=== PATIENT | male | born 1990 | race African-American/Black ===

== ENCOUNTER 2016-11-08 23:35 | Emergency (ER) | payer BC ==
[2016-11-08 23:43] VITALS: BP 134/68
== END 2016-11-09 01:26 | disposition left against medical advice (07) ==
LOC: ED 23:35
DX: R10.30 Lower abdominal pain, unspecified (principal); Z53.21 Procedure and treatment not carried out due to patient leaving prior to being seen by health care provider

== ENCOUNTER 2016-11-12 22:30 | Emergency (ER) | payer BC ==
[2016-11-12] MEDS ORDERED: Ibuprofen TAB* 600 MG PO ONE (23:10)
[2016-11-12 23:52] LABS: Urine Bilirubin Negative (Negative); Urine Glucose Negative (Negative); Urine Nitrite Negative (Negative)
--- NOTE | 2016-11-13 00:57 | ED ---
Stella Brown SooYoung, scribed for Abdifatah Everett on 11/12/16 at 2305 . GI/ HPI - HPI Summary HPI Summary: A 26 y/o M presents to ED with c/o bilat scrotal pain onset 2-3 days. Pt notes he was scheduled for an U/S three days ago for this but he missed the appt. Denies urinary discharge, abd pain, fever. Pt denies smoking, EtOH, drug use. Pt was seen in ED a few months ago for same sx. - History of Current Complaint Chief Complaint: EDUrogenitalProblems Time Seen by Provider: 11/12/16 23:04 Stated Complaint: GROIN PAIN Hx Obtained From: Patient Onset/Duration: Still Present Current Severity: Moderate Pain Intensity: 5 - out of 10 Additional Locations for Males: Scrotum Associated Signs and Symptoms: Negative: Discharge, Fever, Abdominal Pain - Allergy/Home Medications Allergies/Adverse Reactions: Allergies Allergy/AdvReac Type Severity Reaction Status Date / Time Penicillins Allergy Unknown Verified 07/16/16 17:24 Reaction Details PMH/Surg Hx/FS Hx/Imm Hx Previously Healthy: Yes Endocrine/Hematology History: Denies: Hx Anticoagulant Therapy, Hx Diabetes, Hx Thyroid Disease Cardiovascular History: Denies: Hx Hypertension, Hx Pacemaker/ICD Respiratory History: Denies: Hx Asthma, Hx Chronic Obstructive Pulmonary Disease (COPD) History: Denies: Hx Renal Disease Neurological History: Denies: Hx Dementia, Hx Seizures Psychiatric History: Denies: Hx Substance Abuse Infectious Disease History: No Infectious Disease History: Denies: Hx Clostridium Difficile, Hx Hepatitis, Hx Human Immunodeficiency Virus (HIV), Hx of Known/Suspected MRSA, Hx Shingles, Hx Tuberculosis, Hx Known/ Suspected VRE, Hx Known/Suspected VRSA, History Other Infectious Disease, Traveled Outside the [place] in Last 30 Days - Family History Known Family History: Positive: Hypertension - Social History Occupation: Employed Part-time Lives: With Family Alcohol Use: None Hx Substance Use: No Substance Use Type: Reports: None Hx Tobacco Use: No Smoking Status (MU): Never Smoked Tobacco Review of Systems Negative: Fever Negative: Abdominal Pain Positive: other - bilat scrotal pain. Negative: discharge All Other Systems Reviewed And Are Negative: Yes Physical Exam Triage Information Reviewed: Yes Vital Signs On Initial Exam: Initial Vitals Temp Pulse Resp BP Pulse Ox 98.4 F 80 18 138/61 100 11/12/16 22:40 11/12/16 22:40 11/12/16 22:40 11/12/16 22:40 11/12/16 22:40 Vital Signs Reviewed: Yes Appearance: Positive: Well-Appearing, No Pain Distress Skin: Positive: Warm, Skin Color Reflects Adequate Perfusion, Dry Head/Face: Positive: Normal Head/Face Inspection Eyes: Positive: EOMI, JORDAN ENT: Positive: Normal ENT inspection Neck: Positive: Supple, Nontender Respiratory/Lung Sounds: Positive: Clear to Auscultation, Breath Sounds Present Cardiovascular: Positive: RRR, Pulses are Symmetrical in both Upper and Lower Extremities Abdomen Description: Positive: Nontender, Soft Bowel Sounds: Positive: Present Male Genital Exam: Positive: scrotum tenderness (R), scrotum tenderness (L), other - mild scrotal edema Musculoskeletal: Positive: Normal, Strength/ROM Intact - 4XFROM Neurological: Positive: Normal, Sensory/Motor Intact, Alert, Oriented to Person Place, Time Diagnostics - Vital Signs Vital Signs Temp Pulse Resp BP Pulse Ox 11/12/16 22:40 98.4 F 80 18 138/61 100 - Laboratory Lab Statement: Any lab studies that have been ordered have been reviewed, and results considered in the medical decision making process. - Ultrasound No standard instances Ultrasound Interpretation: Positive (See Comments) - IMPRESSION: Small bilateral hydroceles. Minimal L testicular microlithiasis. Ultrasound Interpretation Completed By: Radiologist EVIN Course/Dx - Course Course Of Treatment: MDM: Pt is a 26 y/o M presents to ED with ongoing bilat scrotal pain. Testicular U/S was negative. Pt will be d/c with IBP and told to f/u with urology. Urine test for STDs is pending and pt will be called if positive. Pt voiced understanding. - Diagnoses Provider Diagnoses: Scrotal pain Discharge - Discharge Plan Condition: Stable Disposition: HOME Patient Education Materials: Ibuprofen (By mouth), Testicle Pain (ED) Referrals: No Primary Care Phys,NOPCP [Primary Care Provider] - Ke Garrison MD [Medical Doctor] - 1 Week () Additional Instructions: Follow up with Dr. Garrison, urology, in one week. The results for your urine STD test is still pending. You will be called only if the results are positive. Return to ED for worsening or new symptoms. The documentation as recorded by the Stella matta SooYoung accurately reflects the service I personally performed and the decisions made by me, Abdifatah Everett.
[2016-11-13 01:06] VITALS: BP 128/64
--- NOTE | 2016-11-13 07:54 | RAD ---
INDICATION: Bilateral testicular pain. COMPARISON: Comparison is made with a prior testicular ultrasound from August 25, 2016. TECHNIQUE: Multiple real-time images of the testicles were obtained including color Doppler images and Doppler tracings. FINDINGS: The testicles are normal in size, shape and echogenicity. The right testicle measured 3.8 x 2.0 x 2.8 cm and the left testicle measured 4.3 x 2.1 x 2.8 cm. There is a small calcification in the inferior pole of the left testicle which is unchanged. No other focal abnormalities are seen. There is symmetric vascular flow within both testicles. The epididymides appear to be within normal limits. Note is made of a appendix testes on the right side. There are small bilateral hydroceles. IMPRESSION: 1. NO EVIDENCE FOR TESTICULAR TORSION OR EPIDIDYMITIS. 2. SMALL BILATERAL HYDROCELES. 3. SMALL AREA OF CALCIFICATION IN THE INFERIOR POLE OF THE LEFT TESTICLE NOTED IN THE PRIOR STUDY RECOMMEND A FOLLOW-UP TESTICULAR ULTRASOUND IN 6 MONTHS TIME.
== END 2016-11-13 01:04 | disposition home or self-care (01) ==
LOC: ED 22:30
DX: N50.82 Scrotal pain (principal); N43.3 Hydrocele, unspecified
CPT/HCPCS: 76870; 81003; 87491; 87591; 99282; A9270-GY

== ENCOUNTER 2017-10-26 22:39 | Emergency (ER) | payer BC ==
[2017-10-27] MEDS ORDERED: Ondansetron ODT TAB* 4 MG PO ONE (00:22)
[2017-10-27] MEDS ORDERED: Ketorolac INJ* 60 MG/2 ML VIAL IM ONE (00:22)
[2017-10-27] MEDS ORDERED: O ndansetron ODT 4MG 2TAB PRPK 4 MG PAK PO ONE (01:11)
--- NOTE | 2017-10-27 01:11 | ED ---
Influenza-Like Illness - HPI Summary HPI Summary: 27M presents with fever since today. He admits to headache and generalized body aches. He denies any cough or sore throat. He denies any sinus congestion. He denies any chest pain or SOB. He denies any fever stiffness. He admits to nausea but denies any vomiting. He admits to diarrhea. He admits to decrease in appetite. He admits to generalized abdominal pain. He denies any one else being sick. He has not take anything for his fever. - History of Current Complaint Chief Complaint: EDFever Time Seen by Provider: 10/26/17 23:54 - Allergy/Home Medications Allergies/Adverse Reactions: Allergies Allergy/AdvReac Type Severity Reaction Status Date / Time Penicillins Allergy Unknown Verified 07/16/16 17:24 Reaction Details PMH/Surg Hx/FS Hx/Imm Hx Endocrine/Hematology History: Denies: Hx Anticoagulant Therapy, Hx Diabetes, Hx Thyroid Disease Cardiovascular History: Denies: Hx Hypertension, Hx Pacemaker/ICD Respiratory History: Denies: Hx Asthma, Hx Chronic Obstructive Pulmonary Disease (COPD) History: Denies: Hx Renal Disease Neurological History: Denies: Hx Dementia, Hx Seizures Psychiatric History: Denies: Hx Substance Abuse Infectious Disease History: No Infectious Disease History: Denies: Hx Clostridium Difficile, Hx Hepatitis, Hx Human Immunodeficiency Virus (HIV), Hx of Known/Suspected MRSA, Hx Shingles, Hx Tuberculosis, Hx Known/ Suspected VRE, Hx Known/Suspected VRSA, History Other Infectious Disease, Traveled Outside the [place] in Last 30 Days - Family History Known Family History: Positive: Hypertension - Social History Alcohol Use: None Hx Substance Use: No Substance Use Type: Reports: None Hx Tobacco Use: No Smoking Status (MU): Never Smoked Tobacco Review of Systems Positive: Fever Negative: Chest Pain Negative: Shortness Of Breath, Cough Positive: Abdominal Pain, Diarrhea, Nausea. Negative: Vomiting All Other Systems Reviewed And Are Negative: Yes Physical Exam Triage Information Reviewed: Yes Vital Signs On Initial Exam: Initial Vitals Temp Pulse Resp BP Pulse Ox 99.9 F 106 18 109/61 99 10/26/17 22:47 10/26/17 22:47 10/26/17 22:47 10/26/17 22:47 10/26/17 22:47 Vital Signs Reviewed: Yes Appearance: Positive: Well-Appearing Skin: Positive: Warm, Dry Head/Face: Positive: Normal Head/Face Inspection Eyes: Positive: Normal, EOMI, JORDAN, Conjunctiva Clear ENT: Positive: Normal ENT inspection, Pharynx normal, TMs normal Respiratory/Lung Sounds: Positive: Clear to Auscultation, Breath Sounds Present Cardiovascular: Positive: Normal, RRR Abdomen Description: Positive: Nontender, Soft Bowel Sounds: Positive: Present Musculoskeletal: Positive: Normal Neurological: Positive: Normal Psychiatric: Positive: Normal - Omer Coma Scale Coma Scale Total: 15 Diagnostics - Vital Signs Vital Signs Temp Pulse Resp BP Pulse Ox 10/27/17 00:16 100.4 F 10/26/17 22:47 99.9 F 106 18 109/61 99 - Laboratory Lab Results: Lab Results 10/27/17 10/27/17 Range/Units 00:21 00:22 Influenza A (Rapid) Negative (Negative) Influenza B (Rapid) Negative (Negative) Group A Strep Rapid Negative (Negative) Lab Statement: Any lab studies that have been ordered have been reviewed, and results considered in the medical decision making process. Flu Symptom Course/Dx - Course Course Of Treatment: 27M presents with fever since today. He admits to headache and generalized body aches. He denies any cough or sore throat. He denies any sinus congestion. He denies any chest pain or SOB. He denies any fever stiffness. He admits to nausea but denies any vomiting. He admits to diarrhea. He admits to decrease in appetite. He admits to generalized abdominal pain. He denies any one else being sick. He has not take anything for his fever. on exam abdomen soft nontender. lungs CTA. flu and strept neg. likely viral gastroenteritis causing symptoms. patient understand and agrees with plan. - Diagnoses Differential Diagnosis/HQI/PQRI: Positive: Influenza, Upper Respiratory Infection, Other - gastroenteritits Provider Diagnoses: Fever Discharge - Discharge Plan Condition: Good Disposition: HOME Prescriptions: Ondansetron ODT TAB* [Zofran 4 MG Odt TAB*] 4 mg PO Q6H PRN #16 tab.odt PRN Reason: Nausea Patient Education Materials: Fever in Adults (ED) Forms: *Work Release Referrals: [facility] [Outside] Additional Instructions: Take zofran every 6 hours as needed for nausea Can Tylenol or ibuprofen every 6 hours for pain and fever Establish care with primary care physician Return to ED if develop any new or worsening symptoms
[2017-10-27] MEDS ORDERED: Ondansetron ODT TAB* 4 MG ONE (01:18)
[2017-10-27 01:23] VITALS: BP 114/61
== END 2017-10-27 01:22 | disposition home or self-care (01) ==
LOC: ED 22:39
DX: R50.9 Fever, unspecified (principal); R51 Headache
CPT/HCPCS: 87502; 87651; 96372; 99282; A9270-GY; J1885

== ENCOUNTER 2017-12-24 11:46 | Emergency (ER) | payer BC ==
[2017-12-24 12:03] VITALS: BP 119/59
--- NOTE | 2017-12-24 12:22 | UC ---
Keegan Brown Jennifer, scribed for Estiven Pérez MD on 12/24/17 at 1209 . Cardiac HPI - HPI Summary HPI Summary: The pt is a 27 y/o male who presents with chest pain that began last night. Pt reports the pain is located mid sternal and radiates to the back of his neck and shoulders. It is described as a pounding and is rated a 7/10. The pain is aggravated with deep breaths. Pt additionally complains of his head spinning, vision blurriness, nausea, shortness of breath, and swollen feet. He denies fevers, chills, sweats, cough, chest congestion, and any recent illness. The pt reports that he has had recent stress at work that he believes may have triggered this. - History of Current Complaint Stated Complaint: DIZZY,CHEST PAIN, HEART PALP Hx Obtained From: Patient Onset/Duration: Sudden Onset, Lasting Days - Began last night, Still Present Timing: Constant Initial Severity: Moderate Current Severity: Moderate Pain Intensity: 7 Chest Pain Location: Mid Sternal Character: Pounding Aggravating Factor(s): Deep Breaths, Other - Palpation Alleviating Factor(s): Nothing Associated Signs & Symptoms: Positive: Chest Pain, Vision Changes - Blurriness, Recent Stress - Work, Headaches - Head "spinning", SOB, Swelling - Swelling of feet, Nausea/Vomiting - Nausea. Negative: Fever, Diaphoresis, Cough - Allergy/Home Medications Allergies/Adverse Reactions: Allergies Allergy/AdvReac Type Severity Reaction Status Date / Time Penicillins Allergy anaph Verified 12/24/17 11:59 PMH/Surg Hx/FS Hx/Imm Hx Previously Healthy: Yes - NEG: HTN, DM Other History Of: Negative For: Anticoagulant Therapy - Surgical History Surgical History: None - Family History Known Family History: Positive: Hypertension - Social History Alcohol Use: None Substance Use Type: None Smoking Status (MU): Never Smoked Tobacco Review of Systems Constitutional: Negative - Fever, chills, sweats Eyes: Blurred Vision Respiratory: Negative - Cough, chest congestion, Shortness Of Breath Cardiovascular: Chest Pain Gastrointestinal: Nausea Musculoskeletal: Other: - Swelling of feet Neurological: Other - Head is "spinning" Is Patient Immunocompromised?: No All Other Systems Reviewed And Are Negative: Yes Physical Exam - Summary Physical Exam Summary: General: well-appearing, no pain distress Skin: warm, color reflects adequate perfusion, dry Head: normal Eyes: EOMI, JORDAN ENT: normal Neck: supple, nontender Respiratory: CTA, breath sounds present Cardiovascular: Reported tenderness to palpation on anterior chest. RRR Abdomen: soft, nontender Bowel: present Musculoskeletal: normal, strength/ROM intact Neurological: normal, sensory/motor intact, A&O x3 Psychological: affect/mood appropriate Triage Information Reviewed: Yes Vital Signs: Initial Vital Signs Temp 98.3 F 12/24/17 12:00 Pulse 67 12/24/17 12:00 Resp 18 12/24/17 12:00 BP 119/59 12/24/17 12:00 Pulse Ox 99 12/24/17 12:00 Vital Signs Reviewed: Yes - Assessment/Plan Course Of Treatment: Medications reviewed. Allergies noted. DISCUSSED NEED FOR EVALUATION FOR CHEST PAIN IN EMERGENCY DEPARTMENT WHERE LABS AND OTHER TEST CAN BE RESULTED RIGHT AWAY. DISCUSSED GOING BY AMBULANCE TO THE EMERGENCY DEPARTMENT; PATIENT DECLINED, STATED HE WOULD BY GO BY POV. I INFORMED THE ED THAT PATIENT WILL BE GOING THERE. - Clinical Impression Provider Diagnoses: CHEST PAIN Discharge - Discharge Plan Condition: Stable Disposition: HOME Patient Education Materials: Chest Pain (ED) Referrals: No Primary Care Phys,NOPCP [Primary Care Provider] - Additional Instructions: GO DIRECTLY TO THE EMERGENCY DEPARTMENT FOR FURTHER EVALUATION OF YOUR CHEST PAIN. The documentation as recorded by the Keegan matta Jennifer accurately reflects the service I personally performed and the decisions made by me, Estiven Pérez MD.
== END 2017-12-24 12:16 | disposition home or self-care (01) ==
LOC: UCEAST 11:46
DX: R07.89 Other chest pain (principal); Z88.0 Allergy status to penicillin
CPT/HCPCS: 99211; G0463

== ENCOUNTER 2017-12-24 12:41 | Emergency (ER) | payer BC ==
[2017-12-24 13:38] LABS: ABS Basophils 0 10^3/ul (0-0.2); ABS Eosinophils 0.1 10^3/ul (0-0.6); ABS Lymphocytes 1.4 10^3/ul (1.0-4.8); ABS Monocytes 0.4 10^3/ul (0-0.8); ABS Nucleated RBC 0 10^3/ul; Eosinophil % 2.8 % (0-6); Hematocrit 42 % (42-52); Hemoglobin 14.3 g/dl (14.0-18.0); Lymphocyte % 27.9 % (25-47); Mean Corpuscular HGB Conc 34 g/dl (31-36); Mean Corpuscular Hemoglobin 30 pg (27-31); Mean Corpuscular Volume 87 fL (80-94); Mean Platelet Volume 8 um3 (7.4-10.4); Nucleated Red Blood Cells % 0.2; Platelet Count 234 10^3/ul (150-450); Red Blood Count 4.79 10^6/ul (4.0-5.4); Red Cell Distribution Width 14 % (10.5-15); White Blood Count 5.1 10^3/ul (3.5-10.8)
[2017-12-24 13:53] LABS: EGFR Non-African American 97.8 (>60)
[2017-12-24 14:27] VITALS: BP 132/74
--- NOTE | 2017-12-24 14:34 | RAD ---
Indication: Chest pain. 2 views of the chest including dual energy PA views demonstrates no mediastinal shift. Heart is of normal size and configuration. Lung terrazas are clear. When compared to previous exam of 5:15 no significant change is noted. IMPRESSION: No active cardiopulmonary disease is noted.
== END 2017-12-24 14:26 | disposition left against medical advice (07) ==
LOC: ED 12:41
DX: R07.9 Chest pain, unspecified (principal); Z53.21 Procedure and treatment not carried out due to patient leaving prior to being seen by health care provider
CPT/HCPCS: 36415; 71046; 80053; 84484; 85025; 85379; 93005

== ENCOUNTER 2017-12-24 15:44 | Emergency (ER) | payer BC ==
[2017-12-24 19:13] VITALS: BP 112/66
--- NOTE | 2017-12-29 19:40 | ED ---
Aaron Brown Julia, scribed for Poli Cronin MD on 12/24/17 at 1955 . HPI Chest Pain - HPI Summary HPI Summary: This patient is a 27 year old M presenting to [facility] with a chief complaint of chest pain, SOB, and numbness in the hands. Patient reports he gets these symptoms while at work, which has been increasingly stressful recently. He is not currently having symptoms. 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 - History of Current Complaint Chief Complaint: EDChestPainROMI Time Seen by Provider: 12/24/17 18:56 Hx Obtained From: Patient Onset/Duration: Started Weeks Ago, Resolved Timing: Intermittent Pain Intensity: 0 Pain Scale Used: 0-10 Numeric Chest Pain Location: Mid Sternal Associated Signs and Symptoms: Positive: Chest Pain, Shortness of Breath, Other : - tingling in hands - Allergy/Home Medications Allergies/Adverse Reactions: Allergies Allergy/AdvReac Type Severity Reaction Status Date / Time Penicillins Allergy anaph Verified 12/24/17 11:59 PMH/Surg Hx/FS Hx/Imm Hx Endocrine/Hematology History: Denies: Hx Anticoagulant Therapy, Hx Diabetes, Hx Thyroid Disease Cardiovascular History: Denies: Hx Hypertension, Hx Pacemaker/ICD Respiratory History: Denies: Hx Asthma, Hx Chronic Obstructive Pulmonary Disease (COPD) History: Denies: Hx Renal Disease Neurological History: Denies: Hx Dementia, Hx Seizures Psychiatric History: Denies: Hx Substance Abuse Infectious Disease History: No Infectious Disease History: Denies: Hx Clostridium Difficile, Hx Hepatitis, Hx Human Immunodeficiency Virus (HIV), Hx of Known/Suspected MRSA, Hx Shingles, Hx Tuberculosis, Hx Known/ Suspected VRE, Hx Known/Suspected VRSA, History Other Infectious Disease, Traveled Outside the [place] in Last 30 Days - Family History Known Family History: Positive: Hypertension - Social History Alcohol Use: None Hx Substance Use: No Substance Use Type: Reports: None Hx Tobacco Use: No Smoking Status (MU): Never Smoked Tobacco Review of Systems Positive: Chest Pain Positive: Shortness Of Breath Neurological: Other - tingling in hands All Other Systems Reviewed And Are Negative: Yes Physical Exam - Summary Physical Exam Summary: Appearance: Well-appearing, Well-nourished Skin: Warm, Dry, No rash Eyes: Normal, PERRL, EOMI, sclera anicteric ENT: Normal Neck: Supple, nontender Respiratory: Clear to auscultation Cardiovascular: S1, S2, no murmur, no rub, no gallop Abdomen: Soft, nontender, no organomegaly Bowel sounds: Present Musculoskeletal: Normal, Strength/ROM Intact, no edema, pulses symmetrical Neurological: Normal, A&Ox3, cranial nerves II-XII WNL, follows commands, gait not tested, sensation intact to pin and light touch Psychiatric: affect normal, behavior appropriate, dressed appropriately, judgment intact Triage Information Reviewed: Yes Vital Signs On Initial Exam: Initial Vitals Temp Pulse Resp BP Pulse Ox 97.7 F 69 18 127/66 99 12/24/17 15:46 12/24/17 15:46 12/24/17 15:46 12/24/17 15:46 12/24/17 15:46 Vital Signs Reviewed: Yes Diagnostics - Vital Signs Vital Signs Temp Pulse Resp BP Pulse Ox 12/24/17 19:12 98.7 F 66 15 112/66 99 12/24/17 17:35 97.7 F 66 18 124/68 99 12/24/17 15:46 97.7 F 69 18 127/66 99 - Laboratory Lab Statement: Any lab studies that have been ordered have been reviewed, and results considered in the medical decision making process. Chest Pain Course/Dx - Course Course Of Treatment: Patient presents with chest pain, SOB, and tingling in the hands that is currently resolved. He reports recent stress at work. His previous EKG and CXR from earlier today was unremarkable. - Diagnoses Provider Diagnoses: Panic attack, Anxiety disorder Discharge - Discharge Plan Condition: Good Disposition: HOME Prescriptions: Mirtazapine 15 mg PO BEDTIME #30 tab.rapdis Patient Education Materials: Anxiety (ED), Panic Attack (ED) Forms: *Work Release Referrals: No Primary Care Phys,NOPCP [Primary Care Provider] - The documentation as recorded by the Aaron matta Julia accurately reflects the service I personally performed and the decisions made by me, Poli Cronin MD.
--- NOTE | 2017-12-29 19:40 | ED ---
Aaron Brown Julia, scribed for Poli Cronin MD on 12/24/17 at 1856 . HPI Chest Pain - History of Current Complaint Chief Complaint: EDChestPainROMI Pain Intensity: 0 - Allergy/Home Medications Allergies/Adverse Reactions: Allergies Allergy/AdvReac Type Severity Reaction Status Date / Time Penicillins Allergy anaph Verified 12/24/17 11:59 PMH/Surg Hx/FS Hx/Imm Hx Endocrine/Hematology History: Denies: Hx Anticoagulant Therapy, Hx Diabetes, Hx Thyroid Disease Cardiovascular History: Denies: Hx Hypertension, Hx Pacemaker/ICD Respiratory History: Denies: Hx Asthma, Hx Chronic Obstructive Pulmonary Disease (COPD) History: Denies: Hx Renal Disease Neurological History: Denies: Hx Dementia, Hx Seizures Psychiatric History: Denies: Hx Substance Abuse Infectious Disease History: No Infectious Disease History: Denies: Hx Clostridium Difficile, Hx Hepatitis, Hx Human Immunodeficiency Virus (HIV), Hx of Known/Suspected MRSA, Hx Shingles, Hx Tuberculosis, Hx Known/ Suspected VRE, Hx Known/Suspected VRSA, History Other Infectious Disease, Traveled Outside the [place] in Last 30 Days - Family History Known Family History: Positive: Hypertension - Social History Alcohol Use: None Hx Substance Use: No Substance Use Type: Reports: None Hx Tobacco Use: No Smoking Status (MU): Never Smoked Tobacco Review of Systems Genitourinary: Negative Positive: no symptoms reported Musculoskeletal: Negative Skin: Negative Neurological: Other Positive: Paresthesia Psychological: Other Positive: Anxious, Depressed All Other Systems Reviewed And Are Negative: Yes Physical Exam Vital Signs On Initial Exam: Initial Vitals Temp Pulse Resp BP Pulse Ox 97.7 F 69 18 127/66 99 12/24/17 15:46 12/24/17 15:46 12/24/17 15:46 12/24/17 15:46 12/24/17 15:46 Diagnostics - Vital Signs Vital Signs Temp Pulse Resp BP Pulse Ox 12/24/17 17:35 97.7 F 66 18 124/68 99 12/24/17 15:46 97.7 F 69 18 127/66 99 - Laboratory Lab Statement: Any lab studies that have been ordered have been reviewed, and results considered in the medical decision making process. Chest Pain Course/Dx - Diagnoses Provider Diagnoses: Panic attack, Anxiety disorder Discharge - Discharge Plan Condition: Good Disposition: HOME Prescriptions: Mirtazapine 15 mg PO BEDTIME #30 tab.rapdis Patient Education Materials: Anxiety (ED), Panic Attack (ED) Forms: *Work Release Referrals: No Primary Care Phys,NOPCP [Primary Care Provider] - The documentation as recorded by the Aaron matta Julia accurately reflects the service I personally performed and the decisions made by me, Poli Cronin MD.
== END 2017-12-24 19:12 | disposition home or self-care (01) ==
LOC: ED 15:44
DX: F41.0 Panic disorder [episodic paroxysmal anxiety] (principal); F41.9 Anxiety disorder, unspecified; R07.9 Chest pain, unspecified; Z88.0 Allergy status to penicillin
CPT/HCPCS: 99281

== ENCOUNTER 2018-01-27 22:27 | Emergency (ER) | payer SELFPAY ==
[2018-01-28] MEDS ORDERED: Cyclobenzaprine TAB* 10 MG PO ONE (00:59)
[2018-01-28] MEDS ORDERED: Ketorolac INJ* 60 MG/2 ML VIAL IM ONE (00:59)
[2018-01-28 02:08] VITALS: BP 120/75
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
== END 2018-01-28 02:09 | disposition home or self-care (01) ==
LOC: ED 22:27
DX: M54.5 Low back pain (principal)
CPT/HCPCS: 72110; 96372; 99282; A9270-GY; J1885

== ENCOUNTER 2018-02-28 20:38 | Emergency (ER) | payer SELFPAY ==
[2018-02-28 20:49] VITALS: BP 135/69
--- NOTE | 2018-02-28 21:24 | UC ---
FLU HPI - HPI Summary HPI Summary: c/o fever, malaise, nasal discharge with occasional nasal bleeding when blowing his nose. He denies taking aspirin or blood thinners. States he has a baby and wants to be tested for influenza. Denies n/v/d. - History of Current Complaint Chief Complaint: UCRespiratory Stated Complaint: NOSE BLEEDS, CONGESTION Time Seen by Provider: 02/28/18 20:49 Hx Obtained From: Patient Onset/Duration: Gradual Onset, Lasting Days Severity Currently: Mild Severity Initially: Moderate Pain Intensity: 0 Associated Signs & Symptoms: Positive: Fever, T Max - 101, Myalgia, Cough, Nasal Congestion - Risk Factors Influenza Risk Factors: Negative - Allergy/Home Medications Allergies/Adverse Reactions: Allergies Allergy/AdvReac Type Severity Reaction Status Date / Time Penicillins Allergy Anaphylatic Verified 02/28/18 20:50 Shock PMH/Surg Hx/FS Hx/Imm Hx Previously Healthy: Yes Other History Of: Negative For: Anticoagulant Therapy - Surgical History Surgical History: None - Family History Known Family History: Positive: Hypertension - Social History Alcohol Use: None Substance Use Type: None Smoking Status (MU): Never Smoked Tobacco Review of Systems Constitutional: Fever ENT: Nasal Discharge, Sinus Congestion All Other Systems Reviewed And Are Negative: Yes Physical Exam Triage Information Reviewed: Yes Appearance: Well-Appearing, No Pain Distress, Well-Nourished Vital Signs: Initial Vital Signs Temp 99.2 F 02/28/18 20:45 Pulse 70 02/28/18 20:45 Resp 16 02/28/18 20:45 BP 135/69 02/28/18 20:45 Pulse Ox 100 02/28/18 20:45 Vital Signs Reviewed: Yes Eyes: Positive: Conjunctiva Clear ENT: Positive: Hearing grossly normal, Pharynx normal, Nasal congestion, TMs normal, Uvula midline, Other - no blood found on speculoscopy of anterior nose Neck: Positive: Supple, Nontender, No Lymphadenopathy Respiratory: Positive: Chest non-tender, Lungs clear, Normal breath sounds, No respiratory distress Cardiovascular: Positive: RRR, No Murmur, Pulses Normal, Brisk Capillary Refill Flu Course/Dx - Course Course Of Treatment: viral syndrome, influenza test was negative, continue universal precautions with hand hygiene, nasal normal saline, and gentle cleansing of nose. - Differential Dx/Diagnosis Provider Diagnoses: viral URI Discharge - Sign-Out/Discharge Documenting (check all that apply): Discharge/Admit/Transfer - Discharge Plan Condition: Good Disposition: HOME Patient Education Materials: Upper Respiratory Infection (DC), Sodium Chloride (Into the nose) Referrals: No Primary Care Phys,NOPCP [Primary Care Provider] - - Billing Disposition and Condition Condition: GOOD Disposition: HOME
== END 2018-02-28 21:47 | disposition home or self-care (01) ==
LOC: UCEAST 20:38
DX: J06.9 Acute upper respiratory infection, unspecified (principal); Z88.0 Allergy status to penicillin
CPT/HCPCS: 87502; 99211; G0463

== ENCOUNTER 2018-06-23 19:53 | Emergency (ER) | payer BC ==
[2018-06-23 20:39] VITALS: BP 116/80
--- NOTE | 2018-06-23 20:54 | ED ---
Skin Complaint - HPI Summary HPI Summary: 27-year-old male presents with itchiness of neck after shaving. He states it has been going on for months. 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 He states he cannot stop shaving. He denies any history of eczema. No fevers. He states occasionally he gets pustules. no spreading Redness. Has tried differentiating soaps and shaving creams with minimal relief. - History of Current Complaint Chief Complaint: UCSkin Time Seen by Provider: 06/23/18 20:44 Stated Complaint: SKIN COMPLAINT Pain Intensity: 6 - Allergy/Home Medications Allergies/Adverse Reactions: Allergies Allergy/AdvReac Type Severity Reaction Status Date / Time Penicillins Allergy Anaphylatic Verified 06/23/18 20:39 Shock PMH/Surg Hx/FS Hx/Imm Hx Endocrine/Hematology History: Denies: Hx Anticoagulant Therapy, Hx Diabetes, Hx Thyroid Disease Cardiovascular History: Denies: Hx Hypertension, Hx Pacemaker/ICD Respiratory History: Denies: Hx Asthma, Hx Chronic Obstructive Pulmonary Disease (COPD) History: Denies: Hx Renal Disease Neurological History: Denies: Hx Dementia, Hx Seizures Psychiatric History: Denies: Hx Substance Abuse Infectious Disease History: No Infectious Disease History: Denies: Hx Clostridium Difficile, Hx Hepatitis, Hx Human Immunodeficiency Virus (HIV), Hx of Known/Suspected MRSA, Hx Shingles, Hx Tuberculosis, Hx Known/ Suspected VRE, Hx Known/Suspected VRSA, History Other Infectious Disease, Traveled Outside the [place] in Last 30 Days - Family History Known Family History: Positive: Hypertension - Social History Alcohol Use: None Hx Substance Use: No Substance Use Type: Reports: None Hx Tobacco Use: No Smoking Status (MU): Never Smoked Tobacco Review of Systems Negative: Fever Negative: Chest Pain Negative: Shortness Of Breath Positive: Rash All Other Systems Reviewed And Are Negative: Yes Physical Exam Triage Information Reviewed: Yes Vital Signs On Initial Exam: Initial Vitals Temp Pulse Resp BP Pulse Ox 97.3 F 83 12 116/80 100 06/23/18 20:36 06/23/18 20:36 06/23/18 20:36 06/23/18 20:36 06/23/18 20:36 Vital Signs Reviewed: Yes Appearance: Positive: Well-Appearing Skin: Positive: Other - papules present near hair root Head/Face: Positive: Normal Head/Face Inspection Eyes: Positive: Normal, Conjunctiva Clear ENT: Positive: Pharynx normal Respiratory/Lung Sounds: Positive: Clear to Auscultation, Breath Sounds Present Cardiovascular: Positive: Normal, RRR Musculoskeletal: Positive: Normal Neurological: Positive: Normal Psychiatric: Positive: Normal Diagnostics - Vital Signs Vital Signs Temp Pulse Resp BP Pulse Ox 06/23/18 20:36 97.3 F 83 12 116/80 100 - Laboratory Lab Statement: Any lab studies that have been ordered have been reviewed, and results considered in the medical decision making process. Course/Dx - Course Course Of Treatment: 27-year-old male presents with itchiness of neck after shaving. He states it has been going on for months. 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 He states he cannot stop shaving. He denies any history of eczema. No fevers. He states occasionally he gets pustules. no spreading Redness. Has tried differentiating soaps and shaving creams with minimal relief. on exam has papules presents on neck and lower face near hair follicles. no pustules. discussed best treatment is to stop shaving. will give steriod for sx relief. will give antibiotic if develop any pustules. gave tips to help with shaving. patient understand and agrees with plan. - Differential Diagnoses - Skin Complaint Differential Diagnoses: Eczema, Other - follicilitis, abscess - Diagnoses Provider Diagnoses: Pseudofolliculitis barbae Discharge - Sign-Out/Discharge Documenting (check all that apply): Patient Departure All imaging exams completed and their final reports reviewed: No Studies - Discharge Plan Condition: Good Disposition: HOME Prescriptions: Hydrocortisone 2.5% CREAM(NF) 1 applic TOPICAL BID #1 tube Mupirocin 2% OINT* [Bactroban 2 % Oint*] 1 applic TOPICAL BID #1 tube Forms: *Gen. Provider Communication Referrals: No Primary Care Phys,NOPCP [Primary Care Provider] - Additional Instructions: try to avoid shaving if have to shave apply shaving cream to area for 10 mins prior to shaving and shave with single blade in direction of hair growth wash lindsey daily to loosen hair apply corticosteriod to area twice a day apply antibiotic ointment if any pustules develop Return to ED if develop any new or worsening symptoms - Billing Disposition and Condition Condition: GOOD Disposition: Home
== END 2018-06-23 21:00 | disposition home or self-care (01) ==
LOC: UCEAST 19:53
DX: L73.1 Pseudofolliculitis barbae (principal); Z88.0 Allergy status to penicillin
CPT/HCPCS: 99212; G0463

== ENCOUNTER 2019-04-14 13:42 | Emergency (ER) | payer BC, OTHER ==
[2019-04-14 14:11] VITALS: BP 108/65
--- NOTE | 2019-04-14 14:30 | UC ---
Hand/Wrist HPI - HPI Summary HPI Summary: 28 yo male presents with LEFT 5th digit injury. He tells me that 2 days ago at work he accidentally slammed his left pinky into a lock box. Since that time has had pain and swelling to the PIP joint with decreased ROM. He has not iced it or taken anything OTC for his discomfort. He is right handed. - History Of Current Complaint Chief Complaint: UCUpperExtremity Stated Complaint: FINGER INJURY Time Seen by Provider: 04/14/19 14:30 Hx Obtained From: Patient Onset/Duration: Sudden Onset Severity Initially: Severe Severity Currently: Severe Pain Intensity: 8 Pain Scale Used: 0-10 Numeric - Allergies/Home Medications Allergies/Adverse Reactions: Allergies Allergy/AdvReac Type Severity Reaction Status Date / Time Penicillins Allergy Anaphylatic Verified 04/14/19 14:11 Shock Home Medications: Home Medications NK [No Home Medications Reported] 04/14/19 [History Confirmed 04/14/19] PMH/Surg Hx/FS Hx/Imm Hx - Additional Past Medical History Additional PMH: None Other History Of: Negative For: Anticoagulant Therapy - Surgical History Surgical History: None - Family History Known Family History: Positive: Hypertension - Social History Occupation: Employed Full-time Alcohol Use: None Substance Use Type: None Smoking Status (MU): Never Smoked Tobacco Review of Systems All Other Systems Reviewed And Are Negative: Yes Constitutional: Positive: Negative Skin: Positive: Negative Respiratory: Positive: Negative Cardiovascular: Positive: Negative Neurovascular: Positive: Negative Musculoskeletal: Positive: Other: - Left pinky injury Neurological: Positive: Negative Psychological: Positive: Negative Physical Exam - Summary Physical Exam Summary: GENERAL: NAD. WDWN. No pain distress. SKIN: No rashes, sores, lesions, or open wounds. CHEST: No accessory muscle use. Breathing comfortably and in no distress. CV: Pulses intact radial and ulnar. Cap refill <2seconds MSK: LEFT 5th digit: Mild edema at PIP with moderate TTP at dorsal aspect. Pain during flexion of PIP. Mild TTP at DIP and slight decreased flexion here. FROM at MCP without TTP. NEURO: Alert. Sensations intact hand and all fingers. PSYCH: Age appropriate behavior. Triage Information Reviewed: Yes Vital Signs: Initial Vital Signs Temp 98.6 F 04/14/19 14:08 Pulse 71 04/14/19 14:08 Resp 15 04/14/19 14:08 BP 108/65 04/14/19 14:08 Pulse Ox 99 04/14/19 14:08 Vital Signs Reviewed: Yes Hand/Wrist Course/Dx - Course Course Of Treatment: XR: REPORT AND IMPRESSION: #. Negative for fracture or dislocation. The finger is held in mild flexion at the PIP joint. Mild fusiform soft tissue swelling throughout. Given his exam and BARRY, there is concern for a tendon injury. Pt was placed in a finger splint and advised to RICE, take ibuprofen for discomfort, and f/u with Orthopedics for further evaluation. Given that his injury occurred at work , I strongly recommended that he f/u with Occupational Medicine for further evaluation and determination of his work status. - Differential Dx/Diagnosis Provider Diagnosis: Sprain of left little finger Discharge - Sign-Out/Discharge Documenting (check all that apply): Patient Departure All imaging exams completed and their final reports reviewed: Yes - Discharge Plan Condition: Stable Disposition: HOME Patient Education Materials: Finger Sprain (ED) Referrals: No Primary Care Phys,NOPCP [Primary Care Provider] - Rosalino Holguin MD [Medical Doctor] - As Soon As Possible Garrett Bryant MD [Medical Doctor] - As Soon As Possible Additional Instructions: If you develop a fever, shortness of breath, chest pain, new or worsening symptoms - please call your PCP or go to the ED immediately. 1) The X-Ray of your finger was normal today, but your exam is concerning for a possible tendon or ligament problem 2) Please call Orthopedics at the number below to schedule an appointment within 3-5 days for a recheck of your finger 3) Since your injury occurred at work, I strongly recommend that you call Dr. Bryant at the number below. He will handle your work status and any worker's comp information - Billing Disposition and Condition Condition: STABLE Disposition: Home
== END 2019-04-14 15:05 | disposition home or self-care (01) ==
LOC: UCEAST 13:42
DX: S63.617A Unspecified sprain of left little finger, initial encounter (principal); W23.0XXA Caught, crushed, jammed, or pinched between moving objects, initial encounter; Y92.89 Other specified places as the place of occurrence of the external cause; Y99.0 Civilian activity done for income or pay
CPT/HCPCS: 73140; 99212; G0463

== ENCOUNTER 2019-05-31 14:08 | Emergency (ER) | payer BC ==
[2019-05-31 14:22] VITALS: BP 113/66
--- NOTE | 2019-05-31 14:30 | UC ---
Throat Pain/Nasal Kaz HPI - HPI Summary HPI Summary: 28 yo male presents with sore throat, body aches, and low grade fever for the last 2 days. He has been taking OTC vicks cold medicine and tylenol for his symptoms with mild relief. He is eating, drinking, and tolerating po well. Denies sinus symptoms, cough, rash, abdominal pain, n/v. 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 - History of Current Complaint Chief Complaint: UCGeneralIllness Stated Complaint: FEVER Time Seen by Provider: 05/31/19 14:28 Hx Obtained From: Patient Onset/Duration: Sudden Onset Severity: Moderate Pain Intensity: 5 Pain Scale Used: 0-10 Numeric - Allergies/Home Medications Allergies/Adverse Reactions: Allergies Allergy/AdvReac Type Severity Reaction Status Date / Time Penicillins Allergy Anaphylatic Verified 05/31/19 14:22 Shock Home Medications: Home Medications Acetaminophen 650 mg PO ONCE PRN 05/31/19 [History Confirmed 05/31/19] Dm/PE/Acetaminophen/Doxylamine [Vicks Dayquil/Nyquil Cold] 1 mis PO ONCE PRN [History Confirmed 05/31/19] PMH/Surg Hx/FS Hx/Imm Hx - Additional Past Medical History Additional PMH: None Other History Of: Negative For: Anticoagulant Therapy - Surgical History Surgical History: None - Family History Known Family History: Positive: Hypertension - Social History Occupation: Employed Full-time Lives: With Family Alcohol Use: None Substance Use Type: None Smoking Status (MU): Never Smoked Tobacco Review of Systems All Other Systems Reviewed And Are Negative: Yes Constitutional: Positive: Fever Skin: Positive: Negative Eyes: Positive: Negative ENT: Positive: Sore Throat Respiratory: Positive: Negative Cardiovascular: Positive: Negative Gastrointestinal: Positive: Negative Neurovascular: Positive: Negative Neurological: Positive: Negative Psychological: Positive: Negative Physical Exam - Summary Physical Exam Summary: GENERAL: NAD. WDWN. No pain distress. SKIN: No rashes, sores, lesions, or open wounds. HEENT: Head: AT/NC Eyes: Conjunctiva clear without inflammation or discharge. Ears: Hearing grossly normal. TMs intact, no bulging, erythema, or edema. Nose: Nasal mucosa pink and moist. NTTP maxillary and frontal sinus. Throat: Posterior oropharynx moderate erythema and 2+ tonsillar enlargement. No exudates. Uvula midline. No hoarse voice or muffled voice. NECK: Supple. B/L tonsillar LAD mild TTP CHEST: CTAB. No r/r/w. No accessory muscle use. Breathing comfortably and in no distress. CV: RRR. Without m/r/g. Pulses intact. Cap refill <2seconds NEURO: Alert. PSYCH: Age appropriate behavior. Triage Information Reviewed: Yes Vital Signs: Initial Vital Signs Temp 99 F 05/31/19 14:18 Pulse 79 05/31/19 14:18 Resp 18 05/31/19 14:18 BP 113/66 05/31/19 14:18 Pulse Ox 96 05/31/19 14:18 Laboratory Tests 05/31/19 14:27 Group A Strep Rapid Negative Vital Signs Reviewed: Yes Throat Pain/Nasal Course/Dx - Course Course Of Treatment: POC strep negative. His exam is suspicious for mono vs strep. He is requesting treatment at this time with testing for mono. - Differential Dx/Diagnosis Provider Diagnosis: Pharyngitis Discharge - Sign-Out/Discharge Documenting (check all that apply): Patient Departure All imaging exams completed and their final reports reviewed: No Studies - Discharge Plan Condition: Stable Disposition: HOME Prescriptions: Azithromycin TAB* [Zithromax TAB (Z-JOHN) 250 mg #6 tabs] 2 tab PO .TODAY, THEN 1 DAILY #1 john Patient Education Materials: Pharyngitis (ED) Referrals: No Primary Care Phys,NOPCP [Primary Care Provider] - Additional Instructions: If you develop a fever, shortness of breath, chest pain, new or worsening symptoms - please call your PCP or go to the ED immediately. Continue taking tylenol/ibuprofen as directed for your discomfort - Billing Disposition and Condition Condition: STABLE Disposition: Home
[2019-05-31 19:18] LABS: Hematocrit 42 % (42-52); Hemoglobin 14.8 g/dL (14.0-18.0); Mean Corpuscular HGB Conc 35 g/dL (31-36); Mean Corpuscular Hemoglobin 30 pg (27-31); Mean Corpuscular Volume 85 fL (80-94); Mean Platelet Volume 8.5 fL (7.4-10.4); Platelet Count 220 10^3/uL (150-450); Red Blood Count 4.98 10^6 /uL (4.18-5.48); Red Cell Distribution Width 14 % (10-15); White Blood Count 7.1 10^3/uL (3.5-10.8)
[2019-05-31 19:32] LABS: Albumin 4.4 g/dL (3.2-5.2); Albumin/Globulin Ratio 1.3 (1-3); BUN/Creatinine Ratio 7.3 (8-20); Calcium 9.4 mg/dL (8.6-10.3); EGFR African American 97.9 (>60); EGFR Non-African American 80.9 (>60); Globulin 3.4 g/dL (2-4); Potassium 3.9 mmol/L (3.5-5.0); Total Protein 7.8 g/dL (6.4-8.9)
[2019-06-02 13:52] LABS: EBV Capsid Ag IgG Ab Positive (Negative); EBV Capsid Ag IgM Ab Negative (Negative); Epstein-Barr Nuclear Antigen Positive (Negative)
== END 2019-05-31 15:05 | disposition home or self-care (01) ==
LOC: UCEAST 14:08
DX: J02.9 Acute pharyngitis, unspecified (principal); Z88.0 Allergy status to penicillin
CPT/HCPCS: 36415; 80053; 85027; 86308; 86664; 86665; 87651; 99212; G0463

== ENCOUNTER 2019-06-06 20:54 | Emergency (ER) | payer BC, OTHER ==
[2019-06-06] MEDS ORDERED: Acetaminophen TAB* 325 MG PO ONE (22:42)
--- NOTE | 2019-06-06 22:43 | ED ---
Complex/Multi-Sys Presentation - HPI Summary HPI Summary: Patient complains of fever up to 100.5, headache, chills, neck pain 5 days. Patient seen at urgent care 6 days ago with sore throat and fever. 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 Patient currently denies cough, ear pain, sore throat, CP, SOB, N/V/D , abdominal pain, change in urine, change in BM. Patient states he took aspirin at 5:30 PM. Medical history is none. Patient was strep and mono negative at urgent care. - History Of Current Complaint Chief Complaint: EDFever Time Seen by Provider: 06/06/19 22:29 Hx Obtained From: Patient Onset/Duration: Gradual Onset, Lasting Days Timing: Intermittent, Lasting: Severity Currently: Moderate Severity Initially: Moderate Character: Throbbing Associated Signs And Symptoms: Positive: Fever - Allergies/Home Medications Allergies/Adverse Reactions: Allergies Allergy/AdvReac Type Severity Reaction Status Date / Time Penicillins Allergy Anaphylatic Verified 06/06/19 20:58 Shock PMH/Surg Hx/FS Hx/Imm Hx Endocrine/Hematology History: Denies: Hx Anticoagulant Therapy, Hx Diabetes, Hx Thyroid Disease Cardiovascular History: Denies: Hx Hypertension, Hx Pacemaker/ICD Respiratory History: Denies: Hx Asthma, Hx Chronic Obstructive Pulmonary Disease (COPD) History: Denies: Hx Renal Disease Sensory History: Denies: Hx Eye Prosthesis Opthamlomology History: Denies: Hx Legally Blind EENT History: Denies: Hx Deafness Neurological History: Denies: Hx Dementia, Hx Seizures Psychiatric History: Denies: Hx Substance Abuse Infectious Disease History: No Infectious Disease History: Denies: Hx Clostridium Difficile, Hx Hepatitis, Hx Human Immunodeficiency Virus (HIV), Hx of Known/Suspected MRSA, Hx Shingles, Hx Tuberculosis, Hx Known/ Suspected VRE, Hx Known/Suspected VRSA, History Other Infectious Disease, Traveled Outside the [place] in Last 30 Days - Family History Known Family History: Positive: Hypertension - Social History Alcohol Use: None Hx Substance Use: No Substance Use Type: Reports: None Hx Tobacco Use: No Smoking Status (MU): Never Smoked Tobacco Review of Systems Positive: Fever Eyes: Negative ENT: Negative Cardiovascular: Negative Respiratory: Negative Gastrointestinal: Negative Genitourinary: Negative Musculoskeletal: Negative Skin: Negative Positive: Headache Psychological: Normal All Other Systems Reviewed And Are Negative: Yes Physical Exam - Summary Physical Exam Summary: Full range of motion of neck. Negative Kernig's, negative Brudzinski. Tenderness with palpation of right sternocleidomastoid and righttrapezius muscle. ENT exam unremarkable. Triage Information Reviewed: Yes Vital Signs On Initial Exam: Initial Vitals Temp Pulse Resp BP Pulse Ox 99.0 F 76 15 130/90 99 06/06/19 20:55 06/06/19 20:55 06/06/19 20:55 06/06/19 20:55 06/06/19 20:55 Vital Signs Reviewed: Yes Appearance: Positive: Well-Appearing Skin: Positive: Warm Head/Face: Positive: Normal Head/Face Inspection Eyes: Positive: Normal ENT: Positive: Normal ENT inspection Neck: Positive: Supple Respiratory/Lung Sounds: Positive: Clear to Auscultation Cardiovascular: Positive: Normal Abdomen Description: Positive: Nontender Musculoskeletal: Positive: Normal Neurological: Positive: Normal Psychiatric: Positive: Normal AVPU Assessment: Alert - [place] Coma Scale Best Eye Response: 4 - Spontaneous Best Motor Response: 6 - Obeys Commands Best Verbal Response: 5 - Oriented Coma Scale Total: 15 Diagnostics - Vital Signs Vital Signs Temp Pulse Resp BP Pulse Ox 06/06/19 20:55 99.0 F 76 15 130/90 99 - Laboratory Result Diagrams: 06/06/19 22:51 06/06/19 22:51 Lab Statement: Any lab studies that have been ordered have been reviewed, and results considered in the medical decision making process. Complex Multi-Symp Course/Dx Course Of Treatment: Patient complains of fever up to 100.5, headache, chills, neck pain 5 days. Patient seen at urgent care 6 days ago with sore throat and fever. 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 Patient currently denies cough, ear pain, sore throat, CP, SOB, N/V/D, abdominal pain, change in urine, change in BM. Patient states he took aspirin at 5:30 PM. Medical history is none. Patient was strep and mono negative at urgent care. Vital signs within normal limits. Labs unremarkable. Likely viral syndrome. - Diagnoses Provider Diagnoses: Headache Discharge - Sign-Out/Discharge Documenting (check all that apply): Patient Departure Patient Received Moderate/Deep Sedation with Procedure: No - Discharge Plan Condition: Stable Disposition: HOME Patient Education Materials: Acute Headache (ED) Referrals: No Primary Care Phys,NOPCP [Primary Care Provider] - [facility] [Outside] Additional Instructions: Alternate ibuprofen 600 mg with Tylenol 650 mg every 3 hours as needed for headache and fever. Drink plenty of fluids to maintain hydration. Follow-up with [facility] for evaluation by primary care. - Billing Disposition and Condition Condition: STABLE Disposition: Home - Attestation Statements Provider Attestation: the patient was seen by the midlevel provider, it was determined by them that it was not necessary for me to see the patient, I was available for consult during the patient's visit in the ED. I did not establish and patient-physician relationship. The chart however has been reviewed and I am signing in an administrative capacity.
[2019-06-06 23:03] LABS: ABS Basophils 0.1 10^3/ul (0-0.2); ABS Eosinophils 0.2 10^3/ul (0-0.6); ABS Lymphocytes 1.8 10^3/ul (1.0-4.8); ABS Monocytes 0.4 10^3/ul (0-0.8); ABS Neutrophils 5.6 10^3/ul (1.5-7.7); Eosinophil % 1.9 %; Hematocrit 41 % (42-52); Hemoglobin 13.8 g/dL (14.0-18.0); Lymphocyte % 22.6 %; Mean Corpuscular HGB Conc 34 g/dL (31-36); Mean Corpuscular Hemoglobin 29 pg (27-31); Mean Corpuscular Volume 85 fL (80-94); Mean Platelet Volume 7.4 fL (7.4-10.4); Platelet Count 274 10^3/uL (150-450); Red Blood Count 4.77 10^6 /uL (4.18-5.48); Red Cell Distribution Width 13 % (10-15); White Blood Count 8.1 10^3/uL (3.5-10.8)
[2019-06-06 23:24] LABS: Albumin/Globulin Ratio 1.2 (1-3); BUN/Creatinine Ratio 8.7 (8-20); C Reactive Protein 6.93 mg/L (<8.01); Calcium 9.3 mg/dL (8.6-10.3); EGFR African American 104.5 (>60); EGFR Non-African American 86.3 (>60); Globulin 3.4 g/dL (2-4); Potassium 3.5 mmol/L (3.5-5.0); Total Bilirubin 0.8 mg/dL (0.2-1.0); Total Protein 7.4 g/dL (6.4-8.9)
[2019-06-07 00:19] LABS: Urine Appearance Clear; Urine Bilirubin Negative (Negative); Urine Blood Negative (Negative); Urine Color Straw; Urine Glucose Negative (Negative); Urine Ketones Negative (Negative); Urine Nitrite Negative (Negative); Urine Protein Negative (Negative); Urine Specific Gravity 1.004 (1.010-1.030); Urine Urobilinogen Negative (Negative)
[2019-06-07 00:32] VITALS: BP 118/65
== END 2019-06-07 00:30 | disposition home or self-care (01) ==
LOC: ED 20:54
DX: R51 Headache (principal); R50.9 Fever, unspecified; M54.2 Cervicalgia; Z88.0 Allergy status to penicillin
CPT/HCPCS: 36415; 80053; 81003; 83605; 85025; 86140; 99283; A9270-GY

== ENCOUNTER 2019-07-08 20:26 | Emergency (ER) | payer BC ==
--- OUTSIDE RECORDS SUMMARY | 2019-07-08 20:34 | XMS REPORT | Continuity of Care Document ---
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 Medicine Problems Description No Information Available Social History Type Date Description Comments Sex Unknown ETOH Use Denies alcohol use Tobacco Use Start: Unknown Patient has never smoked Recreational Drug Use Denies Drug Use Smoking Status Reviewed: 06/21/19 Patient has never smoked Allergies, Adverse Reactions, Alerts Active Allergies Reaction Severity Comments Date Penicillin throat swelling 06/21/2019 Medications Description No Active Medications Immunizations Description No Information Available Vital Signs Date Vital Result Comment 06/21/2019 9:40am BP Systolic 104 mmHg BP Diastolic 70 mmHg Heart Rate 72 /min Body Temperature 98.6 F Respiratory Rate 12 /min Height 69 inches 5'9" measured Weight 155.00 lb BMI (Body Mass Index) 22.9 kg/m2 Results Test Date Facility Test Result H/L Range Note Laboratory test 06/21/2019 [facility] T3 Uptake <pending> finding [address] [place] [address] (687)- - Laboratory test 06/21/2019 [facility](fma) TSH <pending> 0.5-5.0 finding Free T4 <pending> 0.75-1.54 Free T3 <pending> 2.0-4.9 Procedures Description No Information Available Medical Devices Description No Information Available Encounters Description No Information Available Assessments Date Code Description Provider 06/21/2019 R50.9 Fever, unspecified RAMIRO Rivas 06/21/2019 E05.90 Thyrotoxicosis, unspecified without thyrotoxic RAMIRO Rivas crisis or storm Plan of Treatment Future Appointment(s):07/18/2019 2:40 pm - Lopez Pack MD at [facility]06/21/2019 - Annmarie Escoto, PAR50.9 Fever, unspecifiedComments: We will check your bloodwork today and also schedule a Ultrasound of your thyroid. please call with any concerns.E05.90 Thyrotoxicosis, unspecified without thyrotoxic crisis or stormAllNew Medication:No Active Medications - Comments:PCMHMedication Management Patient Understands medications he's taking ? Yes Are there Barriers to Adherence? No Has the patient been asked about herbal supplements and therapies, and OTC meds? Yes Care Plan1. Patient has been queried about patient's goals/preferences and functional/ lifestyle goals at relevant visits. Yes If relevant, describe: N/A2. Treatment goals as explained to the patient: above3. Are there barriers to meeting treatment goals? No If Yes, please describe:4. Self-Management goals as described to the patient: Yes As always, we strongly encourage a healthy diet and making physical activity a part of your every day life. If you have questions about how or where to start, please contact the office.Follow up:[address] Pack for Complete Physical Exam Functional Status Description No Information Available Mental Status Description No Information Available Referrals Description No Information Available
[2019-07-08 20:41] VITALS: BP 118/69
[2019-07-08] MEDS ORDERED: Albuterol HFA INHALER* 8 gm MDI INH ONE (20:55)
[2019-07-08] MEDS ORDERED: Azithromycin TAB* 250 MG PO ONE (20:55)
[2019-07-08] MEDS ORDERED: predniSONE TAB* 20 MG PO ONE (20:55)
--- NOTE | 2019-07-08 21:02 | UC ---
Respiratory Complaint HPI - HPI Summary HPI Summary: The patient is a 28-year-old male that has not felt well since the end of May. At the onset of his illness he had one-week history of fever and chills. He was seen by multiple physicians at that time and had blood work drawn. Since then his fever and chills disappeared but he has had persistent nasal congestion and cough. He has had some chest tightness. Yesterday he started feeling feverish again. When he checked his temperature was 100.3. He has had no nausea or vomiting. He denies any headaches. He does have some myalgias. He attributes his symptoms to working and damp musty conditions. He has had no weight loss. He had a CXR about 3 weeks ago and it was negative no n/c no CP or SOB - History of Current Complaint Chief Complaint: UCGeneralIllness Stated Complaint: FEVER, BODY ACHES, COUGH Time Seen by Provider: 07/08/19 20:29 Hx Obtained From: Patient Onset/Duration: Sudden Onset, Lasting Weeks, Worse Since - past day Timing: Constant Severity Initially: Mild Severity Currently: Moderate Pain Intensity: 5 Pain Scale Used: 0-10 Numeric Character: Cough: Productive Aggravating Factors: Nothing Alleviating Factors: Nothing Associated Signs And Symptoms: Positive: Nasal Congestion, Sinus Discomfort - Allergies/Home Medications Allergies/Adverse Reactions: Allergies Allergy/AdvReac Type Severity Reaction Status Date / Time Penicillins Allergy Anaphylatic Verified 07/08/19 20:42 Shock PMH/Surg Hx/FS Hx/Imm Hx Previously Healthy: Yes Other History Of: Negative For: Anticoagulant Therapy - Surgical History Surgical History: None - Family History Known Family History: Positive: Hypertension, Non-Contributory - Social History Alcohol Use: None Substance Use Type: None Smoking Status (MU): Never Smoked Tobacco Review of Systems All Other Systems Reviewed And Are Negative: Yes Constitutional: Positive: Fever, Chills, Fatigue Skin: Positive: Negative Eyes: Positive: Negative ENT: Positive: Nasal Discharge, Sinus Congestion, Sinus Pain/Tenderness Respiratory: Positive: Cough Cardiovascular: Positive: Negative Gastrointestinal: Positive: Negative Genitourinary: Positive: Negative Motor: Positive: Negative Neurovascular: Positive: Negative Musculoskeletal: Positive: Myalgia Neurological: Positive: Negative Psychological: Positive: Negative Physical Exam Triage Information Reviewed: Yes Appearance: Well-Appearing, No Pain Distress, Well-Nourished Vital Signs: Initial Vital Signs Temp 99.9 F 07/08/19 20:35 Pulse 103 07/08/19 20:35 Resp 16 07/08/19 20:35 BP 118/69 07/08/19 20:35 Pulse Ox 99 07/08/19 20:35 Vital Signs Reviewed: Yes Eyes: Positive: Conjunctiva Clear ENT: Positive: Hearing grossly normal, Pharyngeal erythema, Nasal congestion, TMs normal, Tonsillar swelling, Sinus tenderness - mild, Uvula midline. Negative: Nasal drainage, Tonsillar exudate, Trismus, Muffled voice, Hoarse voice Neck: Positive: Supple, Nontender, No Lymphadenopathy Respiratory: Positive: No respiratory distress, No accessory muscle use, Wheezing - with forced expiration Cardiovascular: Positive: RRR, No Murmur, Tachycardia Musculoskeletal: Positive: ROM Intact, No Edema Neurological: Positive: Alert, Fatigued Skin Exam: Normal Respiratory Course/Dx - Differential Dx/Diagnosis Provider Diagnosis: Acute bronchitis Discharge ED - Sign-Out/Discharge Documenting (check all that apply): Patient Departure All imaging exams completed and their final reports reviewed: No Studies - Discharge Plan Condition: Stable Disposition: HOME Prescriptions: Azithromycin TAB* [Zithromax TAB*] 250 mg PO DAILY #4 tab predniSONE [Deltasone 20 MG TAB] 40 mg PO DAILY #10 tab Patient Education Materials: Acute Bronchitis (ED), How to Use a Metered-Dose Inhaler and a Spacer (ED) Referrals: Lopez Pack MD [Primary Care Provider] - 4 Days (IF NOT BETTER) - Billing Disposition and Condition Condition: STABLE Disposition: Home - Attestation Statements Provider Attestation: Per institutional requirements, I have reviewed the chart, however, I was not consulted specifically or made aware of this patient by the midlevel provider. I did not personally evaluate, interact with , or disposition this patient.
== END 2019-07-08 21:21 | disposition home or self-care (01) ==
LOC: UCEAST 20:26
DX: J20.9 Acute bronchitis, unspecified (principal); Z88.0 Allergy status to penicillin
CPT/HCPCS: 99213; A9270-GY; G0463; J7512

== ENCOUNTER 2019-10-11 19:07 | Emergency (ER) | payer BC ==
[2019-10-11 19:26] VITALS: BP 115/81
--- NOTE | 2019-10-11 19:47 | UC ---
HPI Febrile Illness - HPI Summary HPI Summary: 29 yo with 4 day history of fever, myalgias particularly in the neck muscles, coryza, mild cough and malaise. No nausea or vomiting. He has some back ache, UA positive only for protein, without dysuria. We reviewed his history from May and June, when he had a chest xray, 2 normal blood counts, IgG for EBV. He never took zithromax as prescribed. - History of Current Complaint Chief Complaint: UCGeneralIllness Time Seen by Provider: 10/11/19 19:31 Hx Obtained From: Patient Onset/Duration: Started Days Ago - 4 Initial Severity: Moderate Current Severity: Moderate Pain Intensity: 4 Aggravating Factors: Unknown Alleviating Factors: Nothing Associated Signs and Symptoms: Myalgia, Sore Throat - Risk Factors Pseudomonas Risk Factors: Negative Serious Bacterial Infection Risk Factors: Negative - Allergy/Home Medications Allergies/Adverse Reactions: Allergies Allergy/AdvReac Type Severity Reaction Status Date / Time Penicillins Allergy Anaphylatic Verified 10/11/19 19:26 Shock PMH/Surg Hx/FS Hx/Imm Hx Previously Healthy: Yes Other History Of: Negative For: Anticoagulant Therapy - Surgical History Surgical History: None - Family History Known Family History: Positive: Hypertension, Non-Contributory - Social History Occupation: Employed Full-time Lives: With Family Alcohol Use: None Substance Use Type: None Smoking Status (MU): Never Smoked Tobacco Review of Systems All Other Systems Reviewed And Are Negative: Yes Constitutional: Positive: Fever, Chills, Fatigue Skin: Positive: Negative Eyes: Positive: Negative ENT: Positive: Nasal Discharge Respiratory: Positive: Cough Cardiovascular: Positive: Negative Gastrointestinal: Positive: Nausea Genitourinary: Positive: Negative Motor: Positive: Negative Neurovascular: Positive: Negative Musculoskeletal: Positive: Myalgia Neurological: Positive: Headache Psychological: Positive: Negative Is Patient Immunocompromised?: No Physical Exam Triage Information Reviewed: Yes Appearance: No Pain Distress, Ill-Appearing - looks mildly unwell Vital Signs: Initial Vital Signs Temp 97.8 F 10/11/19 19:22 Pulse 67 10/11/19 19:22 Resp 16 10/11/19 19:22 BP 115/81 10/11/19 19:22 Pulse Ox 100 10/11/19 19:22 Eye Exam: Normal Eyes: Positive: Conjunctiva Clear ENT: Positive: Pharyngeal erythema, TMs normal Neck: Positive: Supple, Nontender, No Lymphadenopathy Respiratory: Positive: Lungs clear, Normal breath sounds Cardiovascular: Positive: RRR, No Murmur Abdomen Description: Positive: Nontender, No Organomegaly, Soft, Bruit. Negative: CVA Tenderness (R), CVA Tenderness (L) Musculoskeletal Exam: Normal Neurological: Positive: Alert, Muscle Tone Normal Psychological Exam: Normal Skin Exam: Normal Diagnostics - Laboratory Lab Results: Rapid flu positive for fluA Course/Dx - Course Course Of Treatment: Continue symptomatic treatment. - Febrile Illness Differential Diagnoses: Fever of Unknown Origin, Viremia, Other: - influenza - Diagnoses Provider Diagnosis: Influenza A Discharge ED - Sign-Out/Discharge Documenting (check all that apply): Patient Departure All imaging exams completed and their final reports reviewed: No Studies - Discharge Plan Condition: Stable Disposition: HOME Patient Education Materials: Influenza (ED) Forms: *Work Release Referrals: Lopez Pack MD [Primary Care Provider] - Additional Instructions: Continue symptomatic treatment of flu, using ibuprofen and acetaminophen as needed. Off work. Anticipate that symptoms can persist for several more days. Follow up if you have increasing shortness of breath or chest pain. - Billing Disposition and Condition Condition: STABLE Disposition: Home
[2019-10-11 20:08] LABS: Influenza A Molecular POSITIVE (Negative)
== END 2019-10-11 20:35 | disposition home or self-care (01) ==
LOC: UCEAST 19:07
DX: J11.1 Influenza due to unidentified influenza virus with other respiratory manifestations (principal); J34.89 Other specified disorders of nose and nasal sinuses; R11.0 Nausea; Z88.0 Allergy status to penicillin
CPT/HCPCS: 81003; 87651; 99211; G0463

== ENCOUNTER 2019-10-16 11:18 | Emergency (ER) | payer BC ==
--- NOTE | 2019-10-16 11:38 | ED ---
Throat Pain/Nasal Congestion - HPI Summary HPI Summary: 29-year-old -Mal[place] male recently diagnosed with influenza A 5 days ago presents to the emergency department today complaining of sore throat and fever. Patient states he took Tylenol prior to arrival for alleviation of his pain. Patient states it started on 10 throat pain which is made worse with swallowing and makes swallowing difficult. Patient states he is able to eat and drink however it is painful. Patient endorses throat pain, fever, nasal congestion consistent with influenza. Patient denies chest pain, abdominal pain , nausea, vomiting, diarrhea, shortness of breath, difficulty managing secretions. Family history and social history not laboratory. - History of Current Complaint Chief Complaint: EDThroatPain Time Seen by Provider: 10/16/19 11:26 Hx Obtained From: Patient Onset/Duration: Gradual Onset Severity: Moderate Associated Signs And Symptoms: Positive: Dysphagia Cough: None - Allergies/Home Medications Allergies/Adverse Reactions: Allergies Allergy/AdvReac Type Severity Reaction Status Date / Time Penicillins Allergy Anaphylatic Verified 10/16/19 11:32 Shock PMH/Surg Hx/FS Hx/Imm Hx Endocrine/Hematology History: Denies: Hx Anticoagulant Therapy, Hx Diabetes, Hx Thyroid Disease Cardiovascular History: Denies: Hx Hypertension, Hx Pacemaker/ICD Respiratory History: Denies: Hx Asthma, Hx Chronic Obstructive Pulmonary Disease (COPD) History: Denies: Hx Renal Disease Sensory History: Denies: Hx Eye Prosthesis, Hx Legally Blind, Hx Deafness Opthamlomology History: Denies: Hx Eye Prosthesis, Hx Legally Blind Neurological History: Denies: Hx Dementia, Hx Seizures Psychiatric History: Denies: Hx Substance Abuse Infectious Disease History: No Infectious Disease History: Denies: Hx Clostridium Difficile, Hx Hepatitis, Hx Human Immunodeficiency Virus (HIV), Hx of Known/Suspected MRSA, Hx Shingles, Hx Tuberculosis, Hx Known/ Suspected VRE, Hx Known/Suspected VRSA, History Other Infectious Disease, Traveled Outside the [place] in Last 30 Days - Family History Known Family History: Positive: Hypertension, Non-Contributory - Social History Alcohol Use: None Hx Substance Use: No Substance Use Type: Reports: None Hx Tobacco Use: No Smoking Status (MU): Never Smoked Tobacco Review of Systems Positive: Fever Eyes: Negative Positive: Sore Throat Cardiovascular: Negative Respiratory: Negative Gastrointestinal: Negative Genitourinary: Negative Musculoskeletal: Negative Skin: Negative Neurological: Negative Psychological: Normal All Other Systems Reviewed And Are Negative: Yes Physical Exam - Summary Physical Exam Summary: Inspection of the posterior pharynx reveals significant erythema with no tonsillar swelling. No tonsillar exudates are appreciated. There is no vesicles or lesions and the buccal mucosa or posterior pharynx. Uvula is midline. Bilateral anterior cervical lymphadenopathy is appreciated. Triage Information Reviewed: Yes Vital Signs On Initial Exam: Initial Vitals Temp Pulse Resp BP Pulse Ox 99.5 F 113 18 115/71 98 10/16/19 11:20 10/16/19 11:20 10/16/19 11:20 10/16/19 11:20 10/16/19 11:20 Vital Signs Reviewed: Yes Appearance: Positive: Well-Appearing, No Pain Distress, Well-Nourished Skin: Positive: Warm, Skin Color Reflects Adequate Perfusion Eyes: Positive: EOMI, JORDAN ENT: Positive: Hearing grossly normal, Uvula midline Respiratory/Lung Sounds: Positive: Clear to Auscultation, Breath Sounds Present Cardiovascular: Positive: RRR, S1, S2 Abdomen Description: Positive: Nontender, Soft Bowel Sounds: Positive: Present Musculoskeletal: Positive: Strength/ROM Intact Neurological: Positive: Sensory/Motor Intact, Alert, Oriented to Person Place, Time, Normal Gait Psychiatric: Positive: Normal AVPU Assessment: Alert Procedures - Sedation Patient Received Moderate/Deep Sedation with Procedure: No Diagnostics - Vital Signs Vital Signs Temp Pulse Resp BP Pulse Ox 10/16/19 11:20 99.5 F 113 18 115/71 98 - Laboratory Lab Statement: Any lab studies that have been ordered have been reviewed, and results considered in the medical decision making process. EENT Course/Dx - Course Course Of Treatment: Patient was evaluated for throat pain in the emergency department. Rapid strep test negative. Patient's symptoms are likely due to a virus as he was recently diagnosed with influenza. He was given ibuprofen in the emergency department for pain. Patient declined viscous lidocaine. He is to follow-up with his primary care provider in 5 days for further evaluation and management. - Differential Diagnoses Differential Diagnoses: Cellulitis, Laryngitis, Raúl's Angina, Pharyngitis, Tonsilitis - Diagnoses Provider Diagnoses: Pharyngitis Discharge ED - Sign-Out/Discharge Documenting (check all that apply): Patient Departure - Discharge Plan Condition: Stable Disposition: HOME Patient Education Materials: Pharyngitis (ED) Referrals: Lopez Pack MD [Primary Care Provider] - 5 Days Additional Instructions: Most cases of acute pharyngitis are caused by respiratory viruses and are self- limited. I advise taking over the counter ibuprofen for pain control of your sore throat. If you develop any worsening or changing symptoms, especially if you feel you begin to have difficulty with breathing or worsening swallowing, you need to return to the ED. Please follow up with PCP in 5 days. It was a pleasure taking care of you today - Billing Disposition and Condition Condition: STABLE Disposition: Home - Attestation Statements Provider Attestation: I was available for consultation for this patient. I did not evaluate the patient or participate in any medical decision making or disposition decisions unless I am specifically named in the chart as having consulted on the patient. If I have consulted on the patient, please see my own ED note on the patient encounter. Desire Olson MD
[2019-10-16 11:47] LABS: Rapid Strep Molecular Negative (Negative)
[2019-10-16] MEDS ORDERED: Ibuprofen TAB* 400 MG PO ONE (11:49)
[2019-10-16 12:03] VITALS: BP 151/71
== END 2019-10-16 12:03 | disposition home or self-care (01) ==
LOC: ED 11:18
DX: J02.9 Acute pharyngitis, unspecified (principal); Z88.0 Allergy status to penicillin
CPT/HCPCS: 87651; 99282; A9270-GY

== ENCOUNTER 2019-10-18 20:33 | Emergency (ER) | payer BC ==
[2019-10-18 20:43] VITALS: BP 114/63
[2019-10-18] MEDS ORDERED: Ciprofloxacin 0.3% OPTH.SOL* BTL LEFT EYE ONE (21:06)
--- NOTE | 2019-10-18 21:36 | UC ---
Eye Complaint HPI - HPI Summary HPI Summary: WOKE UP THIS MORNING WITH LEFT EYE REDNESS AND IRRITATION. REPORTS SOME GOOPY DRAINAGE. HAS RECENTLY RECOVERED FROM THE FLU. DENIES ANY VISUAL DISTURBANCES , HEADACHE, NAUSEA. NO PHOTOPHOBIA. NO FB SENSATION OR PAIN WITH EOM. - History of Current Complaint Chief Complaint: UCEye Stated Complaint: EYE COMPLAINT Time Seen by Provider: 10/18/19 20:42 Hx Obtained From: Patient Onset/Duration: Sudden Onset, Lasting Hours, Still Present Timing: Constant Severity Initially: Mild Severity Currently: Mild Pain Intensity: 3 Pain Scale Used: 0-10 Numeric Location of Injury: Conjunctiva Aggravating Factor(s): Nothing Alleviating Factor(s): Nothing Associated Signs And Symptoms: Positive: Drainage (Purulent). Negative: Photophobia, Vision Impairment Left - Allergies/Home Medications Allergies/Adverse Reactions: Allergies Allergy/AdvReac Type Severity Reaction Status Date / Time Penicillins Allergy Anaphylatic Verified 10/18/19 20:43 Shock PMH/Surg Hx/FS Hx/Imm Hx Previously Healthy: Yes Other History Of: Negative For: Anticoagulant Therapy - Surgical History Surgical History: None - Family History Known Family History: Positive: Hypertension, Non-Contributory - Social History Alcohol Use: None Substance Use Type: None Smoking Status (MU): Never Smoked Tobacco Review of Systems All Other Systems Reviewed And Are Negative: Yes Constitutional: Positive: Negative Eyes: Positive: Drainage, Eye Redness. Negative: Blurred Vision, Photophobia Respiratory: Positive: Negative Cardiovascular: Positive: Negative Gastrointestinal: Positive: Negative Physical Exam Triage Information Reviewed: Yes Appearance: Well-Appearing, No Pain Distress, Well-Nourished Vital Signs: Initial Vital Signs Temp 99.4 F 10/18/19 20:37 Pulse 77 10/18/19 20:37 Resp 12 10/18/19 20:37 BP 114/63 10/18/19 20:37 Pulse Ox 98 10/18/19 20:37 Vital Signs Reviewed: Yes Eyes: Positive: Conjunctiva Inflamed - LEFT, Discharge - CLEAR DRAINAGE LEFT EYE , Other: - PERRL, EOMI, NO FB IDENTIFIED ENT: Positive: Hearing grossly normal Neck: Positive: Supple Respiratory: Positive: No respiratory distress, No accessory muscle use Cardiovascular: Positive: Pulses Normal Abdomen Description: Positive: Soft Musculoskeletal: Positive: No Edema Neurological: Positive: Alert Psychological: Positive: Age Appropriate Behavior Skin: Negative: Rashes Eye Complaint Course/Dx - Differential Dx/Diagnosis Provider Diagnosis: Conjunctivitis, left eye Discharge ED - Sign-Out/Discharge Documenting (check all that apply): Patient Departure All imaging exams completed and their final reports reviewed: No Studies - Discharge Plan Condition: Stable Disposition: HOME Patient Education Materials: Conjunctivitis (ED) Referrals: Lopez Barcenas MD [Medical Doctor] - If Needed Lopez Pack MD [Primary Care Provider] - If Needed Additional Instructions: YOUR SYMPTOMS ARE CONSISTENT WITH LEFT PINKEYE. INSTILL ONE ANTIBIOTIC EYE DROP INTO THE LEFT EYE EVERY 4 HOURS WHILE AWAKE. USE UNTIL YOUR SYMPTOMS ARE RESOLVED AND THEN FOR AN EXTRA 1 OR 2 DAYS. IF YOU DEVELOP SYMPTOMS IN YOUR RIGHT EYE GO AHEAD AND USE THE EYE DROPS IN THAT RIGHT EYE IN THE SAME MANNER. IF YOUR SYMPTOMS ARE NOT IMPROVING AFTER FEW DAYS FOLLOW-UP WITH AN EYE DOCTOR. - Billing Disposition and Condition Condition: STABLE Disposition: Home
== END 2019-10-18 21:18 | disposition home or self-care (01) ==
LOC: UCEAST 20:33
DX: H10.9 Unspecified conjunctivitis (principal); Z88.0 Allergy status to penicillin
CPT/HCPCS: 99212; A9270-GY; G0463

== ENCOUNTER 2020-01-08 21:07 | Emergency (ER) | payer BC ==
[2020-01-08 21:59] VITALS: BP 122/75
--- NOTE | 2020-01-08 22:04 | UC ---
General HPI - HPI Summary HPI Summary: PATIENT WORKS AT THE [employer]. STATES AN INMATE TESTED POSITIVE TODAY FOR COVID19. PATIENT STATES IT IS HIGHLY LIKELY HE HAD EXPOSURE TO THIS PERSON. HE IS WONDERING ABOUT GETTING TESTED FOR COVID19. HE DENIES ANY SYMPTOMS. NO FEVER, COUGH, HEADACHE, MYALGIAS, GI DISTRESS, CONGESTION, SHORTNESS OF BREATH. HE FEELS WELL AT HIS BASELINE. WAS JUST CONCERNED BECAUSE OF THE POSSIBLE EXPOSURE. - History of Current Complaint Chief Complaint: UCRespiratory Stated Complaint: EXPOSURE Time Seen by Provider: 01/08/20 21:13 Hx Obtained From: Patient Current Severity: None Pain Intensity: 0 - Allergy/Home Medications Allergies/Adverse Reactions: Allergies Allergy/AdvReac Type Severity Reaction Status Date / Time Penicillins Allergy Anaphylatic Verified 01/08/20 21:23 Shock Home Medications: Home Medications Acetaminophen 650 mg PO ONCE PRN 05/31/19 [History Confirmed 01/08/20] PMH/Surg Hx/FS Hx/Imm Hx Previously Healthy: Yes Other History Of: Negative For: Anticoagulant Therapy - Surgical History Surgical History: None - Family History Known Family History: Positive: Hypertension, Non-Contributory - Social History Alcohol Use: None Substance Use Type: None Smoking Status (MU): Never Smoked Tobacco Review of Systems All Other Systems Reviewed And Are Negative: Yes Constitutional: Positive: Negative Skin: Positive: Negative Eyes: Positive: Negative ENT: Positive: Negative Respiratory: Positive: Negative Cardiovascular: Positive: Negative Gastrointestinal: Positive: Negative Musculoskeletal: Positive: Negative Neurological/Mental Status: Positive: Negative Physical Exam - Summary Physical Exam Summary: TO DECREASE THE RISK OF TRANSMISSION OF POSSIBLE COVID-19 I CONDUCTED THIS INTERVIEW USING TELEMEDICINE WHICH LIMITS THE PHYSICAL EXAM. Triage Information Reviewed: Yes Appearance: Well-Appearing, No Pain Distress, Well-Nourished Vital Signs: Initial Vital Signs Temp 98.4 F 01/08/20 21:10 Pulse 72 01/08/20 21:10 Resp 15 01/08/20 21:10 BP 122/75 01/08/20 21:10 Pulse Ox 100 01/08/20 21:10 Vital Signs Reviewed: Yes Eyes: Positive: Conjunctiva Clear ENT: Positive: Hearing grossly normal Neck: Positive: Supple Respiratory: Positive: No respiratory distress, No accessory muscle use, Other: - LUNGS CLEAR PER NURSING EVALUATION Musculoskeletal: Positive: ROM Intact Psychological: Positive: Age Appropriate Behavior Course/Dx - Course Course Of Treatment: DISCUSSED WITH PATIENT THAT DESPITE HIS PROBABLE EXPOSURE TO AN INDIVIDUAL WITH COVID19, HE IS ASYMPTOMATIC AT THIS TIME TESTING IS NOT INDICATED. HE WAS INSTRUCTED TO MAINTAIN SELF-ISOLATION FOR THE NEXT 14 DAYS. IF HE CONTINUES TO BE ASYMPTOMATIC AT THAT TIME NO FURTHER INTERVENTION IS INDICATED. IF HE DEVELOPS SYMPTOMS AT ANY TIME DURING HIS 14 DAY ISOLATION HE HAS BEEN INSTRUCTED TO CONTACT HIS PCP TO GET AN ORDER FOR TESTING AT THE [facility]. IF HE IS UNABLE TO REACH HIS PCP I INSTRUCTED HIM TO CALL US HERE IN THE URGENT CARE PRIOR TO SHOWING UP FOR TESTING. PATIENT IS BEING DISCHARGED HOME TO SELF-ISOLATION. CONTACT/DROPLET PRECAUTIONS TAKEN BY NURSING DURING ENCOUNTER. TO DECREASE THE RISK OF TRANSMISSION OF POSSIBLE COVID-19 MY PART OF THE INTERVIEW WAS DONE USING TELEMEDICINE. - Diagnoses Provider Diagnosis: Worried well Discharge ED - Sign-Out/Discharge Documenting (check all that apply): Patient Departure All imaging exams completed and their final reports reviewed: No Studies - Discharge Plan Condition: Stable Disposition: HOME Forms: *Work Release, COVID-19 Eval & Not Tested Referrals: Lopez Pack MD [Primary Care Provider] - If Needed Additional Instructions: YOU HAVE NO SYMPTOMS TODAY, DESPITE YOUR POSITIVE COVID-19 CONTACT TESTING IS NOT INDICATED. YOU MUST SELF ISOLATE FOR 14 DAYS REGARDLESS OF TESTING AT THIS POINT. IF YOU DEVELOP SYMPTOMS SUCH FEVER, HEADACHE, COUGH, STOMACH UPSET, BODY ACHES OR ANYTHING ELSE CONCERNING CALL YOUR PCP. IF HE FEELS TESTING IS INDICATED GET AN ORDER TO BE TESTED BY THE [facility]. IF YOU ARE UNABLE TO CONTACT YOUR PCP CALL US HERE IN THE URGENT CARE BEFORE COMING FOR TESTING. IF AT ANY POINT YOU ARE FEELING INCREASINGLY SHORT OF BREATH OR HAVING ANY RESPIRATORY DISTRESS CALL 911 TO BE TAKEN TO THE EMERGENCY ROOM. - Billing Disposition and Condition Condition: STABLE Disposition: Home
== END 2020-01-08 22:15 | disposition home or self-care (01) ==
LOC: UCEAST 21:07
DX: Z71.1 Person with feared health complaint in whom no diagnosis is made (principal); Z88.0 Allergy status to penicillin
CPT/HCPCS: 99211; G0463